=== PATIENT | female | born 1960 | race Caucasian/White ===

== ENCOUNTER 2016-12-02 17:04 | Emergency (ER) | payer SELFPAY ==
[~2016-12-02] VITALS: Ht 162.6 cm; Wt 89.0 kg
[~2016-12-02 17:04] MED LIST: BENA40TA41 PO; METO-319 PO
[2016-12-02 17:06] VITALS: Ht 162.6 cm; Wt 89.0 kg
== END 2016-12-02 20:14 | disposition left against medical advice (07) ==
LOC: E/R 17:04
DX: Z53.21 Procedure and treatment not carried out due to patient leaving prior to being seen by health care provider (principal)